=== PATIENT | male | born 1935 | race Caucasian/White ===

== ENCOUNTER 2016-11-27 08:00 | Outpatient (CLI) | payer MEDICARE, OTHER ==
[2016-10-04 17:11] VITALS: BMI 29.2
[~2016-11-27 08:00] MED LIST: CARDURA1 MG PO; CELEXA10 MG PO; ELIQUIS5 MG PO; LOVENOX INJ100 MG/ML SQ; MULTIPLE VITAMI1 TA1 PO; PEPCID20 MG PO; TOPROL XL25 MG PO; VESICARE10 MG; VESICARE10 MG PO; VESICARE5 MG PO; XARELTO15 MG PO
== END 2016-11-27 23:59 | disposition home or self-care (01) ==
LOC: D.CT 08:00
DX: R19.00 Intra-abdominal and pelvic swelling, mass and lump, unspecified site (principal)

== ENCOUNTER → 2016-12-26 07:28 | Outpatient (CLI) | payer MEDICARE, OTHER ==
[2016-10-04 17:11] VITALS: BMI 29.2
== END | disposition home or self-care (01) ==
LOC: D.CT 07:28
DX: E27.9 Disorder of adrenal gland, unspecified (principal)

== ENCOUNTER → 2017-04-03 09:01 | Outpatient (CLI) | payer MEDICARE, OTHER ==
[2016-10-04 17:11] VITALS: BMI 29.2
== END | disposition home or self-care (01) ==
LOC: D.CT 09:01
DX: E27.9 Disorder of adrenal gland, unspecified (principal)

== ENCOUNTER 2017-07-23 12:51 | Inpatient (IN) | payer MEDICARE, OTHER ==
[~2017-07-23] VITALS: Ht 170.2 cm; Wt 78.7 kg
[2017-07-24 13:18] VITALS: Ht 170.2 cm; Wt 78.7 kg
[2017-08-04] MEDS ORDERED: NYSTATIN ORAL SU5 ML PO (10:30)
[2017-08-04] MEDS ORDERED: LEVSIN/ANASP0.125 MG PO (10:30)
[2017-08-04] MEDS ORDERED: LOPRESSOR25 MG PO (10:31)
[2017-08-04] MEDS ORDERED: LANOXIN125 MCG PO (10:31)
[2017-08-04] MEDS ORDERED: CARDIZEM30 MG PO (10:31)
[2017-08-04] MEDS ORDERED: CELEXA20 MG PO (10:32)
[2017-08-04] MEDS ORDERED: NUTRISOURCE FI1 EACH PO (10:32)
[2017-08-04] MEDS ORDERED: LASIX20 MG PO (10:32)
[2017-08-04] MEDS ORDERED: FLORASTOR250 MG PO (10:33)
[2017-08-04] MEDS ORDERED: DETROL LA4 MG PO (10:33)
[2017-08-04 12:48] VITALS: BP 98/59
== END 2017-08-04 16:28 | disposition home health service (06) | DRG 393 ==
LOC: D.M2 12:51 → OBSVTIME 12:51 → D.M2 07-24 07:42
PROVIDERS: Internal Medicine Gastroenterology; ADMIT Family Medicine
PROC: 0DBN8ZX Excision of Sigmoid Colon, Via Natural or Artificial Opening Endoscopic, Diagnostic (ICD-10-PCS; principal; 2017-07-30 16:45)
DX: K52.1 Toxic gastroenteritis and colitis (principal); I50.33 Acute on chronic diastolic (congestive) heart failure; C85.19 Unspecified B-cell lymphoma, extranodal and solid organ sites; R64 Cachexia; E44.0 Moderate protein-calorie malnutrition; K62.6 Ulcer of anus and rectum; T45.1X5A Adverse effect of antineoplastic and immunosuppressive drugs, initial encounter; R62.7 Adult failure to thrive; Z68.27 Body mass index [BMI] 27.0-27.9, adult; E78.5 Hyperlipidemia, unspecified; I48.91 Unspecified atrial fibrillation; E86.0 Dehydration; I95.9 Hypotension, unspecified; F32.9 Major depressive disorder, single episode, unspecified; M19.90 Unspecified osteoarthritis, unspecified site; D64.81 Anemia due to antineoplastic chemotherapy; I11.0 Hypertensive heart disease with heart failure; D12.7 Benign neoplasm of rectosigmoid junction; D12.5 Benign neoplasm of sigmoid colon; K57.90 Diverticulosis of intestine, part unspecified, without perforation or abscess without bleeding; K56.41 Fecal impaction; Z86.711 Personal history of pulmonary embolism; Z85.46 Personal history of malignant neoplasm of prostate; Z85.038 Personal history of other malignant neoplasm of large intestine